=== PATIENT | female | born 1965 | race Two or more races ===

== ENCOUNTER 2022-01-23 06:30 | Day surgery (SDC) | payer OTHER ==
[~2022-01-23] VITALS: Ht 165.1 cm; Wt 82.1 kg
[~2022-01-23 06:30] MED LIST: COZAAR100 MG PO; GABAPENTIN300 M2 PO; ZYRTEC10 MG PO
[2022-01-23] MEDS ORDERED: PERCOCET 5-3251 EACH PO (11:32)
== END 2022-01-23 13:35 | disposition home or self-care (01) ==
LOC: CIR.AMB 06:30
PROVIDERS: ATTEND Surgery
DX: D35.1 Benign neoplasm of parathyroid gland (principal); E21.0 Primary hyperparathyroidism; Z91.040 Latex allergy status; I10 Essential (primary) hypertension; M43.27 Fusion of spine, lumbosacral region; F41.9 Anxiety disorder, unspecified; Z20.822 Contact with and (suspected) exposure to COVID-19